=== PATIENT | female | born 1965 | race Caucasian/White ===

== ENCOUNTER 2018-03-30 19:36 | Observation (INO) | payer SELFPAY ==
[2018-03-30] VITALS (11 sets, daily range): BP systolic 121–149; BP diastolic 73–90; PULSE 63–88; RESP 14–20; TEMP 36.7–36.8; O2SAT 98–100; BMI 21.9; BMI 21.7
--- NOTE | 2018-03-30 20:05 | CT_ITS ---
STUDY: CT BRAIN WITHOUT CONTRAST REASON FOR EXAM: Female, 52 years old. Confusion, memory loss RADIATION DOSAGE (If Supplied By Facility): CTDIvol = ( 44.99 ) mGy, DLP = ( 762.36 ) mGycm TECHNIQUE: Transaxial CT imaging of the brain was performed without administration of intravenous contrast material. Individualized dose optimization techniques were used for this CT. COMPARISON: None. FINDINGS: Normal soft tissue structures. Normal calvarium. Normal size ventricles and extra-axial spaces for the patient's age. Normal white matter tracts of the cerebral hemispheres. Normal basal ganglia and thalami. Normal brainstem. Normal cerebellum. There is no intracranial hemorrhage. There are no findings of an acute ischemic infarction. Normal visualized paranasal sinuses. CT/Brain/Head without Contrast IMPRESSION: Normal unenhanced CT scan of the brain. Electronically Signed: Andres Rivas MD at 20:42 EDT , Service support ,
--- NOTE | 2018-03-30 20:05 | EKG12_ITS ---
Test Reason : ALT LOC Blood Pressure : / mmHG Vent. Rate : 070 BPM Atrial Rate : 070 BPM P-R Int : 150 ms QRS Dur : 086 ms QT Int : 402 ms P-R-T Axes : 076 080 075 degrees QTc Int : 434 ms Normal sinus rhythm Normal ECG Confirmed by EFREN MARC, JOSE ([id number]), order editor TERRENCE PLUMMER ([id number] on 04/01/2018 1:09:59 PM Referred By: ANA PAULA STUART Confirmed By:JOSE SCHWARTZ MD
--- NOTE | 2018-03-30 20:30 | RAD_ITS ---
STUDY: X-RAY CHEST REASON FOR EXAM: Female, 52 years old. A limited loss of consciousness TECHNIQUE: Single PA view of the chest. COMPARISON: None. FINDINGS: panel monitor leads are present. The lungs are clear and expanded. There is no demonstrated pleural abnormality. Normal size heart. Normal mediastinum and carlos. Normal visualized pulmonary arteries. Normal visualized aortic arch and descending thoracic aorta. Normal visualized thoracic spine. Normal visualized ribs, clavicles, and shoulders. There is no demonstrated abnormality of the visualized soft tissue structures of the upper abdomen. RAD/Chest 1 View IMPRESSION: Normal x-ray examination of the chest. Electronically Signed: Andres Rivas MD at 21:11 EDT , Service support ,
--- NOTE | 2018-03-30 20:32 | ED.VISSUMM ---
- ER Visit Summary Date of Service: 03/30/18 Chief Complaint: Altered mental status History of Present Illness: The patient is a 52 F presenting with altered mental status. Patient states that she went to mow the lawn at her [employer] after work tonight. She was push mowing the lawn and began to feel disoriented and confused. She states she was only out in the heat for 30 minutes. She felt lightheaded but did not pass out. She denies trauma. Denies chest pain or shortness of breath. states she was confused and did not recall events of today. She had slurred speech which is now resolved. She had mild headache. Denies numbness or weakness. Denies vision changes. Denies other complaints. Physical Examination: Vitals are stable. Patient is afebrile. Alert no acute distress. HEENT exam is unremarkable. Neck is supple. Lungs are clear and equal bilaterally. Heart is regular rate and rhythm. Abdomen is soft nontender nondistended. Extremities are unremarkable. Skin is warm and dry. No focal neurologic deficit. NIH 0 Remainder of exam is unremarkable. Emergency Department Course and Treatment: EKG is sinus rate is 70. Chest x-ray shows no acute process. CT head shows no acute process. CBC, chemistries unremarkable other than glucose 134. INR 1.0. Troponin is negative. Repeat NIH continues to be 0. Will discuss with the hospitalist for admission. Disposition: Admission Impression: TIA This note was generated with [employer] dictation software. It may contain incorrect words, spelling, and punctuation that were not noted in review of the chart prior to signing ED Disposition - Plan for ED Patient: Chief Complaint: Alt LOC
[2018-03-30 20:46] LABS: Absolute Lymphocyte Count 2.65 X10^3/ul (0.83-4.51); Absolute Neutrophil Count 3.9 X10^3/uL (2.0-7.7); Basophil# 0.04 X10^3/uL; Basophil% 0.6 % (0-1); Eosinophils% 1.4 % (0-5); Hematocrit 42.5 % (37-47); Hemoglobin 13.6 g/dl (12.0-15.0); Lymphocyte # 2.65 X10^3/ul (4.0); Lymphocyte % 37.3 % (19-41); Mean Corpuscular Hgb 29.6 pg (27.0-32.0); Mean Corpuscular Volume 92.4 fL (81-99); Mean Platelet Vol. 10.2 fl (6.2-12.0); Monocyte# 0.43 X10^3/uL; Neutrophil # 3.89 X10^3/uL (2.7-7.7); Neutrophil % 54.7 % (47-70); Platelet Count 206 K/mm3 (150-450); RBC Distribution Width CV 12.5 % (11.6-14.6); White Blood Count 7.1 K/mm3 (4.4-11.0)
[2018-03-30 20:47] LABS: POSITIVE COUNT NO; POSITIVE DIFFERENTIAL NO; POSITIVE MORPHOLOGY NO
[2018-03-30 20:48] LABS: Prothrombin Time (Protime)PT. 12.8 SECONDS (11.7-14.9)
[2018-03-30 20:49] LABS: Partial Thromboplast Time 25.8 Seconds (24.1-36.2)
[2018-03-30 20:53] LABS: Anion Gap 8 (5-15); BUN 12 mg/dL (7-18); BUN/Creat Ratio 16.4 RATIO (10-20); Calcium,Total 8.6 mg/dL (8.5-10.1); Chloride 103 mmol/L (98-107); Creatinine, Serum 0.73 mg/dL (0.55-1.02); EST Glomerular Filtration Rate 89 mL/min (>60); Est Glom Filt Rate - Afr Amer 108 mL/min (>60); Estimated Creatinine Clearance 88.66 ml/min; Glucose 134 mg/dL (74-106); Potassium 3.5 mmol/L (3.5-5.1); Sodium Level 141 mmol/L (136-145)
[2018-03-30 21:01] LABS: Bedside Glucose 108 mg/dL (70-110)
--- NOTE | 2018-03-30 23:07 | NURSING ---
Er charger aware that pt ok to come to floor.
--- NOTE | 2018-03-30 23:28 | MRI_ITS ---
STUDY: MRA OF THE HEAD WITHOUT CONTRAST REASON FOR EXAM: Female, 52 years old. Dizziness and confusion for 6 hours. TECHNIQUE: 3-D yvye-nq-xetlqi (TOF) imaging was performed with MIPs. The study was performed unenhanced. COMPARISON: MRI the brain and MRA of the neck dated March 31, 2018. FINDINGS: Normal bilateral petrous carotid arteries. Normal right cavernous carotid artery with a normal supraclinoid bifurcation. Normal left cavernous carotid artery with a normal supraclinoid bifurcation. Normal right A1 segments of the anterior cerebral artery. Normal left A1 segments of the anterior cerebral artery. Normal intact anterior communicating artery (ACOM). Normal bilateral A2 segments of the anterior cerebral arteries. Normal right M1 and M2 segments of the middle cerebral arteries, with a normal M1 bifurcation. Normal left M1 and M2 segments of the middle cerebral arteries, with a normal M1 bifurcation. Normal right posterior communicating artery (PCOM). There is a persistent origin of the left posterior cerebral artery with absence of the P1 segment of the left posterior cerebral artery. There is a small atretic left vertebral artery with a dominant right vertebral artery. The left vertebral artery appears to end in PICA. Normal basilar artery with a normal basilar bifurcation. The visualized bilateral superior cerebellar (SCA) arteries are normal. There is absence of the left P1 segment of the posterior cerebral arteries with a normal right P1 segment. Normal visualized bilateral P2 and P3 segments of the posterior cerebral arteries. There is no demonstrated aneurysm of the [place]. There is no major vessel occlusion or hemodynamically significant stenosis. There is no demonstrated abnormality of the visualized brain. MRI/MRA Head ONLY without Contrast IMPRESSION: No MRA evidence for hemodynamically significant stenosis. Electronically Signed: Stacie Sorto MD at 10:18 EDT , Service support ,
[2018-03-31] VITALS (8 sets, daily range): BP systolic 126–135; BP diastolic 73–84; PULSE 60–70; RESP 16; TEMP 36.7; O2SAT 97–99; BMI 21.7
--- NOTE | 2018-03-31 | HP.PCM_ITS ---
Problem List (1) Stroke-like symptoms Status: Acute (2) Hypothyroid Status: Chronic History of Present Illness Date of Admission: 03/30/18 Chief Complaint: altered mental status The patient is a 52 year old F with a significant history of hypothyroidism who presented with altered mental status x 1 day. Patient went to a [employer] to a mow the lawn. While mowing the lawn she felt light headed and odd. She called her . During the conversation with her the patient appeared forgetful. Even though she had dropped her daughter off earlier on in day, the patient could not recall where her daughter was. Her noted that she had a transient episode of slurred speech. The patient and her denied any focal weakness or gait change. At the emergency department her NIH scale was 0. Past Medical History Past Medical History (Chronic Problems): Chronic Problems Hypothyroid (Chronic) Allergies No Known Allergies Allergy (Verified 03/30/18 19:44) Home Medications: Ambulatory Orders Medication Instructions Recorded Levothyroxine [Synthroid] 88 mcg PO DAILY 03/30/18 Surgical History: no surgical history Psychiatric History: No pertinent psych hx Lives: Spouse/ Significant Other Smoking Status: Never smoker Tobacco Use: Non-smoker Alcohol: None Drugs: None - *Family History Maternal History Items: No pertinent history Paternal History Items: No pertinent history Review of Systems Constitutional: Denies: Chills, Fever, Weight Change Eyes: Denies: Blurred vision, Pain HEENT: Denies: Head Aches, Sinus Congestion, Sinus Drainage Cardiovascular: Reports: Light Headedness Respiratory: Denies: Cough, Shortness of breath at rest, Sputum production Gastrointestinal: Denies: Abdominal Pain, Nausea, Vomiting Genitourinary: Reports: Dysuria Musculoskeletal: Denies: Joint Pain, Joint Tenderness Skin: Reports: Dryness Neurological: Reports: Slurred speech - Transient Psychiatric: Denies: Anxiety, Depression, Homicidal Ideations, Suicidal Ideations Hematologic/ Lymphatic: Denies: Easy Bruising, Easy Bleeding VTE Information - Inpt Only VTE Present on Admission: No VTE Mechan Device Prophylaxis: None VTE Pharm Prophylaxis ordered?: Yes Patient Problems: Active and Suspected Problems Stroke-like symptoms (Acute) - Physical Exam General: Alert, Oriented x3, Cooperative HEENT: Atraumatic, PERRLA, EOMI, Normocephalic Neck: Supple, No JVD, Negative Carotid Bruits Lungs: Clear to auscultation Cardiovascular: Regular rate, No murmurs Abdomen: Bowel Sounds Present, Soft, Non Tender Extremities: No edema, Capillary Refill Less than 3 Seconds Skin: No rashes, No breakdown Musculoskeletal: No Tenderness to Palpation of Joints or Extremities Neurological: Cranial nerves II-XII grossly intact, Neuro grossly intact, Motor Exam 5/5 strength throughout, - - Her gait was not assessed. Vital Signs Temp Pulse Resp BP Pulse Ox 98.3 F 63 18 132/73 H 98 03/30/18 23:27 03/30/18 23:27 03/30/18 23:27 03/30/18 23:28 03/30/18 23:27 Oxygen Delivery Method Room Air Weight: 62.8 kg Body Mass Index (BMI) 21.7 Assessment/Plan All Active Problems Stroke-like symptoms (Acute) The patient is a 52 year old F with a significant history of hypothyroidism who presented with altered mental status and strokelike symptoms. Strokelike symptoms CT scan of the head was unremarkable. Aspirin 325?1 ordered. Baby aspirin daily Lipitor ordered. A1c and lipid panel ordered PT, OT and speech therapy consult. MRI/MRA of head, brain and neck ordered. Hypothyroidism Last TSH in EMR was 2012 Repeat TSH ordered Synthroid continued. DVT prophylaxis with subcutaneous heparin. Code Visit OBSV E&M: 16206 Initial observation care L2
[2018-03-31] MEDS: 0.9% Normal Saline 1,000 ML 50 ML IV (00:09)
[2018-03-31] MEDS: Aspirin 325 MG Tablet PO (00:09)
[2018-03-31] MEDS: 0.9% NaCl Peripheral Flush Adult/Peds IV ×2 (00:40→10:09)
[2018-03-31] MEDS: Acetaminophen 325 MG Tablet 650 MG PO ×2 (01:41→10:08)
[2018-03-31 02:06] LABS: Thyroid Stim Hormone (TSH) 2.03 uIU/mL (0.358-3.74)
--- NOTE | 2018-03-31 06:00 | MRI_ITS ---
STUDY: MRI BRAIN WITHOUT CONTRAST REASON FOR EXAM: Female, 52 years old. Dizziness and confusion for 6 hours. TECHNIQUE: Standardized multiplanar fat and water weighted pulse sequences were obtained. COMPARISON: CT the head dated March 30, 2018. FINDINGS: Normal size of the ventricles and extra-axial spaces for the patient's age. Normal white matter tracts of the supratentorial brain. There is no evidence for recent intracranial ischemia or other cause of cytotoxic edema on diffusion weighted imaging (DWI). Normal T2* images of the brain without demonstrated susceptibility artifact. There is no demonstrated hemosiderin stain. Normal bilateral basal ganglia. Normal thalami. There is no extra-axial fluid accumulation. Normal flow voids within the major intracranial circulation suggesting patency by spin echo criteria. Normal sella turcica, pituitary gland, infundibular stalk, optic chiasm and hypothalamus. Normal tectal plate and pineal gland. Normal midbrain, mic and medulla. Normal cerebellum. Normal basal cisterns. Normal bilateral temporal bones. Normal bilateral internal auditory canals. No demonstrated orbital abnormality, within the constraints of a routine brain study. There is mucoperiosteal inflammatory disease of the ethmoid paranasal sinuses consistent with mild chronic sinusitis. Normal calvarium and skull base. Normal visualized soft tissue structures. Normal visualized upper cervical spine. MRI/Brain without Contrast IMPRESSION: Normal unenhanced MRI of the brain. Electronically Signed: Stacie Sorto MD at 10:12 EDT , Service support ,
--- NOTE | 2018-03-31 06:00 | MRI_ITS ---
STUDY: MRA NECK WITH AND WITHOUT CONTRAST REASON FOR EXAM: Female, 52 years old. Dizziness and confusion for 6 hours. TECHNIQUE: 3-D yljr-vk-zwicni (TOF) imaging was performed in an 1.5 T MRI scanner. 7 ml of Gadavist was administered for the contrast enhanced images. COMPARISON: MRI of the brain dated March 31, 2018. FINDINGS: RIGHT CAROTID ARTERIES: Normal right common carotid artery (CCA). Normal right common carotid bulb. Normal origin of the right internal carotid (ICA) artery without a hemodynamically significant stenosis. Normal visualized cervical portion of the right internal carotid artery. Normal origin of the right external carotid artery (ECA). LEFT CAROTID ARTERIES: Normal left common carotid artery (CCA). Normal left common carotid bulb. Normal origin of the left internal carotid (ICA) artery without a hemodynamically significant stenosis. Normal visualized cervical portion of the left internal carotid artery. Normal origin of the left external carotid artery (ECA). VERTEBRAL ARTERIES: Normal antegrade flow within the bilateral vertebral artery without a hemodynamically significant stenosis. MRI/MRA Neck WITH and W/O Contrast IMPRESSION: Normal bilateral cervical carotid and vertebral arteries. Electronically Signed: Stacie Sorto MD at 10:14 EDT , Service support ,
[2018-03-31] MEDS: Levothyroxine 88 MCG Tablet PO (06:37)
[2018-03-31] MEDS: Heparin Injection (Vial) 5,000 UNIT/ML VIAL 5000 UNIT SC (06:37)
[2018-03-31 06:50] LABS: Anion Gap 7 (5-15); BUN 9 mg/dL (7-18); BUN/Creat Ratio 14.7 RATIO (10-20); Calcium,Total 8.6 mg/dL (8.5-10.1); Chloride 105 mmol/L (98-107); Cholesterol 157 mg/dL (200); Creatinine, Serum 0.61 mg/dL (0.55-1.02); EST Glomerular Filtration Rate 109 mL/min (>60); Est Glom Filt Rate - Afr Amer 132 mL/min (>60); Estimated Creatinine Clearance 102.14 ml/min; Glucose 92 mg/dL (74-106); High Density Lipoprotein 67 mg/dL; Potassium 3.7 mmol/L (3.5-5.1); Sodium Level 141 mmol/L (136-145); Triglycerides 61 mg/dL; Very Low Density Lipoprotein 12 mg/dL (5-40)
[2018-03-31] MEDS: Aspirin 81 MG TAB.CHEW PO (08:14)
--- NOTE | 2018-03-31 08:53 | ECHOD_ITS ---
Reason For Study: TIA/CVA Procedure This was a 2D Doppler, Color Flow transthoracic echocardiogram. Exam performed portable in patient room. Left Ventricle Normal LV size. Left ventricular systolic function is normal. The estimated ejection fraction is 54 %. No evidence for diastolic dysfunction. No regional wall motion abnormalities noted. Right Ventricle Normal RV size. Normal systolic function. Atria Normal left atrium. Normal right atrium. Bubble contrast study negative for right to left interatrial shunt. Mitral Valve Normal mitral valve. Mild (1+) eccentric mitral valve insufficiency. Tricuspid Valve Normal tricuspid valve. Mild tricuspid valve insufficiency. Normal pulmonary artery pressure. Aortic Valve Normal aortic valve. Trisinus/trileaflet aortic valve. Pulmonic Valve Normal pulmonic valve. Great Vessels Normal aortic root. The pulmonary artery is normal size. Normal inferior vena cava. Pericardium/Pleural No pericardial effusion. Medication Performed a rapid injection of agitated mix of 9 cc saline and 1cc air to assess for atrial septal defect. MMode/2D Measurements & Calculations LVIDd: 3.9 cm IVSd: 0.99 cm Ao root diam: 2.6 cm LVIDs: 2.7 cm LVPWd: 1.0 cm LA dimension: 2.8 cm FS: 32.0 % LAV(MOD-bp): 21.3 ml LAV(MOD-bp) Indexed: 12.4 ml/m2 LA A4 area: 8.8 cm2 LAV(MOD-sp2): 20.8 ml LAV(MOD-sp4): 18.4 ml Doppler Measurements & Calculations MV E max ulysses: 74.1 cm/sec Lat Peak E' Ulysses: 10.3 cm/sec Med Peak E' Ulysses: 10.9 cm/sec MV A max ulysses: 52.2 cm/sec E/E' lat: 7.2 E/E' med: 6.8 MV E/A: 1.4 Ao V2 max: 109.5 cm/sec LV V1 max: 92.2 cm/sec PA V2 max: 77.6 cm/sec Ao max P.8 mmHg LV V1 max P.4 mmHg TR max ulysses: 210.1 cm/sec TR max P.7 mmHg Interpretation Summary Normal LV size. Left ventricular systolic function is normal. The estimated ejection fraction is 54 %. No evidence for diastolic dysfunction. Bubble contrast study negative for right to left interatrial shunt. Mild (1+) eccentric mitral valve insufficiency. Ordering Physician: JILL Santamaria Referring Physician: Rj Carpio Performed By: Julia Arias RDCS
--- NOTE | 2018-03-31 11:26 | PCM.CONS.GEN ---
Problem List (1) Pre-syncope Status: Acute Reason for Consult Date of Consultation: 03/31/18 Reason for Consultation: Light headedness and disorientation History of Present Illness: The patient is a 52 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 MRI brain done on admission was reported normal, MRA head/neck reported not to show any hemodynamically significant stenosis or occlusion. ] Past Medical History Past Medical History (Chronic Problems): Chronic Problems Hypothyroid (Chronic) Allergies No Known Allergies Allergy (Verified 03/30/18 19:44) Home Medications: Ambulatory Orders Medication Instructions Recorded Levothyroxine [Synthroid] 88 mcg PO DAILY 03/30/18 Surgical History: no surgical history Psychiatric History: No pertinent psych hx Lives: Spouse/ Significant Other Smoking Status: Never smoker Tobacco Use: Non-smoker Alcohol: None Drugs: None - *Family History Maternal History Items: No pertinent history Paternal History Items: No pertinent history Review of Systems Constitutional: Reports: - - complete ROS negative except as documented in HPI Patient Problems: Active and Suspected Problems Stroke-like symptoms (Acute) Pre-syncope (Acute) - Physical Exam General: Alert HEENT: Atraumatic Neck: Supple Lungs: Clear to auscultation Cardiovascular: Normal S1, Normal S2 Abdomen: Bowel Sounds Present Extremities: No cyanosis Skin: No rashes Musculoskeletal: No Tenderness to Palpation of Joints or Extremities Neurological: Cranial nerves II-XII grossly intact, Deep Tendon Reflexes 2+/4 and Symmetrical, Neuro grossly intact, Motor Exam 5/5 strength throughout, Muscle tone normal, Sensory exam intact to light touch and pain, Coordination normal Psych/Mental Status: Normal Affect Vital Signs Temp Pulse Resp BP Pulse Ox 98.0 F 65 16 127/79 H 97 03/31/18 08:05 03/31/18 08:05 03/31/18 08:05 03/31/18 08:05 03/31/18 08:13 Oxygen Delivery Method Room Air Weight: 62.8 kg Body Mass Index (BMI) 21.7 Intake and Output for Last 24 Hours 03/29/18 03/30/18 03/31/18 23:59 23:59 23:59 Intake Total 313 / 313 Output Total 0 / 0 Balance 313 / 313 Laboratory Tests Past 24 Hrs 03/31/18 03/31/18 05:55 05:55 Sodium 141 Potassium 3.7 Chloride 105 Carbon Dioxide 29.0 Anion Gap 7 BUN 9 Creatinine 0.61 Estim Creat Clear Calc 102.14 Est GFR (MDRD) Af Amer 132 Est GFR (MDRD) Non-Af 109 BUN/Creatinine Ratio 14.7 Glucose 92 Hemoglobin A1c Pending Calcium 8.6 Triglycerides 61 Cholesterol 157 LDL Cholesterol 78 VLDL Cholesterol 12 HDL Cholesterol 67 Assessment/Plan All Active Problems Stroke-like symptoms (Acute) Pre-syncope (Acute) The patient is a 52 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 MRI brain done on admission was reported normal, MRA head/neck reported not to show any hemodynamically significant stenosis or occlusion. Impression Possible Presyncope Plan -MRI brain/MRA head/neck reviewed -Recommend TTE -Labs reviewed -Vestibular therapy -GI/DVT prophylaxis -Fall precautions -Further medical management per primary team -Please call with questions if any -Thank you for allowing us to participating in patient's care and management I spent 60 minutes taking history, doing physical examination, reviewing medical records, coordinating care and counseling the patient. Code Visit Inpatient E&M: 89864 Init Hosp L3
--- NOTE | 2018-03-31 11:45 | DCINST_ITS ---
- Discharge Diagnoses Current Active Problems: Current Active and Chronic Problems Stroke-like symptoms (Acute) Hypothyroid (Chronic) You will use the following diet at home:: No restrictions Discharge Activity: Return to Normal Activity Call your doctor if you observe: Shortness of breath, Dizziness, Fainting spells , Chest pain Allergies/Adverse Reactions: Allergies No Known Allergies Allergy (Verified 03/30/18 19:44) Medications to take at Discharge Levothyroxine [Synthroid] 88 mcg PO DAILY 03/30/18 Primary Care Physician: Rj Coy DO [Primary Care Provider] - Please follow up with your Primary Care Physician in: 1 Week Test Results: Test results from this visit will be discussed in further detail at your follow- up appointment, if applicable. Proposed Discharge Date: 03/31/18
--- NOTE | 2018-03-31 11:46 | PCM.DC.SUM ---
<Sandra Shelton - Last Filed: 03/31/18 15:06> Discharge Date and Diagnosis Date of Admission: 03/30/18 Date of Discharge: 03/31/18 - Primary Discharge Diagnosis Active and Suspected Problems 1. Presyncope - Secondary Discharge Diagnosis Chronic Problems Hypothyroid (Chronic) Hospital Course and Treatment Imaging Results: Diagnostic Data Brain CT 03/30/18 20:05 IMPRESSION: Normal unenhanced CT scan of the brain. Electronically Signed: Andres Rivas MD at 20:42 EDT , Service support , Chest X-Ray 03/30/18 20:30 IMPRESSION: Normal x-ray examination of the chest. Electronically Signed: Andres Rivas MD at 21:11 EDT , Service support , Head MRA 03/30/18 23:28 IMPRESSION: No MRA evidence for hemodynamically significant stenosis. Electronically Signed: Stacie Sorto MD at 10:18 EDT , Service support , Brain MRI 03/31/18 06:00 IMPRESSION: Normal unenhanced MRI of the brain. Electronically Signed: Stacie Sorto MD at 10:12 EDT , Service support , Neck MRA 03/31/18 06:00 IMPRESSION: Normal bilateral cervical carotid and vertebral arteries. Electronically Signed: Stacie Sorto MD at 10:14 EDT , Service support , Dr. Alfonso- Neurology Operations: None Procedures: 2-D Echocardiogram Summary of Care Provided: The patient is a 52 year old F admitted 03/31/2018 due to lightheadedness and disorientation. She has a past medical history of hypothyroidism. Patient was mowing when she suddenly felt dizzy and lightheaded. She denies loss of consciousness, focal weakness, visual disturbance, slurred speech. MRI of brain normal. MRA of head and neck showed no hemodynamically significant stenosis. Troponin negative. Patient evaluated by neurology. Possible presyncope. Acute CVA ruled out. Echocardiogram showed an EF of 54%, no evidence of diastolic dysfunction, mild mitral valve insufficiency. Vital signs stable. Lab work unremarkable. Patient denies further dizziness, lightheadedness. Stable for discharge home with follow-up with primary care physician in 1 week. General: Alert, Oriented x3, Cooperative HEENT: Atraumatic, PERRLA, EOMI, Normocephalic Neck: Supple, No JVD, Negative Carotid Bruits Lungs: Clear to auscultation Cardiovascular: Regular rate, No murmurs Abdomen: Bowel Sounds Present, Soft, Non Tender Extremities: No edema, Capillary Refill Less than 3 Seconds Skin: No rashes, No breakdown Musculoskeletal: No Tenderness to Palpation of Joints or Extremities Neurological: Cranial nerves II-XII grossly intact, Neuro grossly intact Patient seen exam prior to discharge. Physical assessment as noted above. Patient is stable for discharge home with the follow-up recommendations as noted above. This patient was seen by JILL Santamaria under the supervision of Dr. Taylor. Discharge Diet: No Restrictions Discharge Activity: Return to Normal Activity Call your doctor if you observe: Shortness of breath, Dizziness, Fainting spells, Chest pain Home Medications: Medications to take at Discharge Levothyroxine [Synthroid] 88 mcg PO DAILY 03/30/18 Primary Care Physician: Rj Coy DO [Primary Care Provider] - Please follow up with your Primary Care Physician in: 1 Week Disposition: Home Minutes spent on discharge:: 35 Patient Condition:: Stable Medical Necessity - Tobacco Use Smoking Status: Never smoker Tobacco Use: Non-smoker Meaningful Use Info Meaningful Use Diagnoses (Choose all that apply): None applicable <William Taylor - Last Filed: 03/31/18 15:57> Discharge Date and Diagnosis - Secondary Discharge Diagnosis Chronic Problems Hypothyroid (Chronic) Hospital Course and Treatment Imaging Results: 03/31/18 08:53 Echo Complete [ECHO] Routine Summary of Care Provided: This patient was seen in conjunction with JILL Santamaria. I have independently interviewed and examined the patient and reviewed pertinent historical, laboratory, and other data. Please refer to JILL Santamaria note for details of this patient's presentation, findings, and recommendations. I have reviewed JILL Santamaria note and concur with documented findings. In brief, The patient is a 52 year old F admitted episodes of lightheadedness associated with disorientation Assessment: 1. Presyncope 2. Hypothyroidism Hospital course as elicited above Code Visit OBSV E&M: 99043 Observation care discharge
--- NOTE | 2018-03-31 11:50 | DS.PCM_ITS ---
<Sandra Shelton - Last Filed: 03/31/18 15:06> Discharge Date and Diagnosis Date of Admission: 03/30/18 Date of Discharge: 03/31/18 - Primary Discharge Diagnosis Active and Suspected Problems 1. Presyncope - Secondary Discharge Diagnosis Chronic Problems Hypothyroid (Chronic) Hospital Course and Treatment Imaging Results: Diagnostic Data Brain CT 03/30/18 20:05 IMPRESSION: Normal unenhanced CT scan of the brain. Electronically Signed: Andres Rivas MD at 20:42 EDT , Service support , Chest X-Ray 03/30/18 20:30 IMPRESSION: Normal x-ray examination of the chest. Electronically Signed: Andres Rivas MD at 21:11 EDT , Service support , Head MRA 03/30/18 23:28 IMPRESSION: No MRA evidence for hemodynamically significant stenosis. Electronically Signed: Stacie Sorto MD at 10:18 EDT , Service support , Brain MRI 03/31/18 06:00 IMPRESSION: Normal unenhanced MRI of the brain. Electronically Signed: Stacie Sorto MD at 10:12 EDT , Service support , Neck MRA 03/31/18 06:00 IMPRESSION: Normal bilateral cervical carotid and vertebral arteries. Electronically Signed: Stacie Sorto MD at 10:14 EDT , Service support , Dr. Alfonso- Neurology Operations: None Procedures: 2-D Echocardiogram Summary of Care Provided: The patient is a 52 year old F admitted 03/31/2018 due to lightheadedness and disorientation. She has a past medical history of hypothyroidism. Patient was mowing when she suddenly felt dizzy and lightheaded. She denies loss of consciousness, focal weakness, visual disturbance, slurred speech. MRI of brain normal. MRA of head and neck showed no hemodynamically significant stenosis. Troponin negative. Patient evaluated by neurology. Possible presyncope. Acute CVA ruled out. Echocardiogram showed an EF of 54%, no evidence of diastolic dysfunction, mild mitral valve insufficiency. Vital signs stable. Lab work unremarkable. Patient denies further dizziness, lightheadedness. Stable for discharge home with follow-up with primary care physician in 1 week. General: Alert, Oriented x3, Cooperative HEENT: Atraumatic, PERRLA, EOMI, Normocephalic Neck: Supple, No JVD, Negative Carotid Bruits Lungs: Clear to auscultation Cardiovascular: Regular rate, No murmurs Abdomen: Bowel Sounds Present, Soft, Non Tender Extremities: No edema, Capillary Refill Less than 3 Seconds Skin: No rashes, No breakdown Musculoskeletal: No Tenderness to Palpation of Joints or Extremities Neurological: Cranial nerves II-XII grossly intact, Neuro grossly intact Patient seen exam prior to discharge. Physical assessment as noted above. Patient is stable for discharge home with the follow-up recommendations as noted above. This patient was seen by JILL Santamaria under the supervision of Dr. Taylor. Discharge Diet: No Restrictions Discharge Activity: Return to Normal Activity Call your doctor if you observe: Shortness of breath, Dizziness, Fainting spells , Chest pain Home Medications: Medications to take at Discharge Levothyroxine [Synthroid] 88 mcg PO DAILY 03/30/18 Primary Care Physician: Rj Coy DO [Primary Care Provider] - Please follow up with your Primary Care Physician in: 1 Week Disposition: Home Minutes spent on discharge:: 35 Patient Condition:: Stable Medical Necessity - Tobacco Use Smoking Status: Never smoker Tobacco Use: Non-smoker Meaningful Use Info Meaningful Use Diagnoses (Choose all that apply): None applicable <William Taylor - Last Filed: 03/31/18 15:57> Discharge Date and Diagnosis - Secondary Discharge Diagnosis Chronic Problems Hypothyroid (Chronic) Hospital Course and Treatment Imaging Results: 03/31/18 08:53 Echo Complete [ECHO] Routine Summary of Care Provided: This patient was seen in conjunction with JILL Santamaria. I have independently interviewed and examined the patient and reviewed pertinent historical, laboratory, and other data. Please refer to JILL Santamaria note for details of this patient's presentation, findings, and recommendations. I have reviewed JILL Santamaria note and concur with documented findings. In brief, The patient is a 52 year old F admitted episodes of lightheadedness associated with disorientation Assessment: 1. Presyncope 2. Hypothyroidism Hospital course as elicited above Code Visit OBSV E&M: 84019 Observation care discharge
== END 2018-03-31 13:03 | disposition home or self-care (01) ==
LOC: ED 21:02 → PCU 23:02
PROVIDERS: Admitting Provider Hospitalist; Emergency Provider Emergency Medicine; Family Provider Student in an Organized Health Care Education/Training Program; PCP Student in an Organized Health Care Education/Training Program; Visit Provider Internal Medicine
DX: R55 Syncope and collapse (principal); E03.9 Hypothyroidism, unspecified; Z79.899 Other long term (current) drug therapy; R47.81 Slurred speech
CPT/HCPCS: 36415; 70450; 70544; 70549; 70551; 71045; 80048; 80061; 82962; 83036; 84443; 84484; 85025; 85610; 85730; 93005; 93306; 96372; 99218; 99285; A9585; J7030; A4216; G0378